=== PATIENT | male | born 1945 ===

== ENCOUNTER 2020-05-20 07:01 | Observation (INO) ==
[2020-05-20 08:03] LABS: ABS Basophils 0.1 10^3/ul (0-0.2); ABS Eosinophils 0.1 10^3/ul (0-0.6); ABS Lymphocytes 0.7 10^3/ul (1.0-4.8); ABS Monocytes 0.3 10^3/ul (0-0.8); ABS Neutrophils 1.7 10^3/ul (1.5-7.7); Eosinophil % 3.7 %; Hematocrit 39 % (42-52); Hemoglobin 12.8 g/dL (14.0-18.0); Lymphocyte % 23.7 %; Mean Corpuscular HGB Conc 33 g/dL (31-36); Mean Corpuscular Hemoglobin 30 pg (27-31); Mean Corpuscular Volume 91 fL (80-94); Mean Platelet Volume 7.2 fL (7.4-10.4); Platelet Count 202 10^3/uL (150-450); Red Blood Count 4.25 10^6 /uL (4.18-5.48); Red Cell Distribution Width 14 % (10-15)
[2020-05-20 08:20] LABS: ALT 23 U/L (7-52); AST 34 U/L (13-39); Albumin 3.9 g/dL (3.2-5.2); Albumin/Globulin Ratio 1.5 (1-3); Alkaline Phosphatase 39 U/L (34-104); Anion Gap 5 mmol/L (2-11); BUN/Creatinine Ratio 17.2 (8-20); Blood Urea Nitrogen 17 mg/dL (6-24); CO2 Carbon Dioxide 29 mmol/L (22-32); Calcium 9.5 mg/dL (8.6-10.3); Chloride 107 mmol/L (101-111); EGFR African American 89.7 (>60); EGFR Non-African American 74.1 (>60); Globulin 2.6 g/dL (2-4); Glucose 89 mg/dL (70-100); Potassium 4.1 mmol/L (3.5-5.0); Sodium 141 mmol/L (135-145); Total Protein 6.5 g/dL (6.4-8.9)
[2020-05-20 08:46] LABS: INR 1.06 (0.82-1.09)
[2020-05-20] MEDS ORDERED: Iohexol 350 (CONTRAST) 500 ML MDV IV ONE (08:47)
[2020-05-20 10:54] LABS: % Iron Saturation 27 % (15-55); Iron 120 ug/dL (50-212); Total Iron Binding Capacity 438 mcg/dL (250-450); Transferrin 313 mg/dL (203-362); Unsaturated Iron Binding < 423 ug/dL
[2020-05-20 11:06] LABS: HDL Cholesterol 92.1 mg/dL
[2020-05-20 11:19] LABS: Folate > 20.00 ng/mL (>3.99)
[2020-05-20 11:19] LABS: TSH Ultra Thyroid Stim Horm 2.59 mcIU/mL (0.34-5.60)
[2020-05-20 11:21] LABS: Free T4 0.92 ng/dL (0.61-1.12)
[2020-05-20] MEDS: Enoxaparin 40 MG/0.4 ML SYR SUBCUT SCH (15:03)
[2020-05-21 05:25] LABS: ABS Eosinophils 0.2 10^3/ul (0-0.6); ABS Monocytes 0.5 10^3/ul (0-0.8); ABS Neutrophils 1.7 10^3/ul (1.5-7.7); Eosinophil % 5.4 %; Hematocrit 37 % (42-52); Hemoglobin 12.8 g/dL (14.0-18.0); Lymphocyte % 28.7 %; Mean Corpuscular HGB Conc 34 g/dL (31-36); Mean Corpuscular Hemoglobin 31 pg (27-31); Mean Corpuscular Volume 90 fL (80-94); Mean Platelet Volume 7.3 fL (7.4-10.4); Platelet Count 188 10^3/uL (150-450); Red Blood Count 4.15 10^6 /uL (4.18-5.48); Red Cell Distribution Width 14 % (10-15); White Blood Count 3.4 10^3/uL (3.5-10.8)
[2020-05-21] MEDS: Enoxaparin 40 MG/0.4 ML SYR SUBCUT SCH ×2 (08:43→09:32)
[2020-05-21] MEDS ORDERED: Aspirin EC 81 mg TAB.EC (enteric coated) PO SCH (09:00)
[2020-05-21 11:43] VITALS: BP 99/72
== END 2020-05-21 12:12 | disposition home or self-care (01) ==
LOC: ED 07:01 → MEDTELE 07:01
PROVIDERS: ADMIT Hospitalist; ATTEND Internal Medicine

== ENCOUNTER 2021-03-31 06:56 | Observation (INO) ==
[~2021-03-31 06:56] MED LIST: Buffered Lidocaine 1% SYRIN 1 ml INTRADERM ONE; Lactated Ringers 1000 ml BAG 1,000 ML IV SCH
[2021-03-31] MEDS ORDERED: ceFAZolin 2 GM PREMIX 2 GM/50 ML BAG ONE (07:32)
[2021-03-31] MEDS ORDERED: Ropivacaine 5 MG/ML 20 ML VIAL 0.5% (100 MG) ONE (08:17)
[2021-03-31] MEDS ORDERED: Rocuronium 50 mg VIAL 10 mg/ml 5 ml VIAL (50 mg) ONE (08:34)
[2021-03-31] MEDS ORDERED: fentaNYL 250 mcg/5 ml 50 MCG/ML 5 ml VIAL (250 MCG) ONE (08:34)
[2021-03-31] MEDS ORDERED: Propofol 10 MG/ML 20 ML BTL ONE (08:37)
[2021-03-31] MEDS ORDERED: Lidocaine 2% PF 5 ML VIAL ONE (08:37)
[2021-03-31] MEDS ORDERED: HYDROmorphone 1 MG/1 ML SYRINGE ONE ×3 (08:49→11:47)
[2021-03-31] MEDS ORDERED: Acetaminophen IV 1 GM/100ML 100 ML IV ONE (08:58)
[2021-03-31] MEDS ORDERED: DiMENhydriNATE IV 50 mg/ml 1 ml VIAL IV PUSH PRN ×2 (09:10→09:11)
[2021-03-31] MEDS ORDERED: diPHENhydraMINE IV 50 MG/ML 1 ml VIAL (BENADRYL) IV PRN ×3 (09:10→09:40)
[2021-03-31] MEDS ORDERED: Naloxone 0.4 mg VIAL 0.4 mg/ml 1 ml VIAL IV PRN ×2 (09:10→09:11)
[2021-03-31] MEDS ORDERED: fentaNYL 100 mcg/2 ml 50 MCG/ML VIAL IV PRN (09:10)
[2021-03-31] MEDS ORDERED: Morphine 2 MG/ML SYRINGE IV PRN (09:40)
[2021-03-31] MEDS ORDERED: Lactulose 30 ml UDC PO PRN (09:40)
[2021-03-31] MEDS ORDERED: Magnesium Hydroxide LIQ 30 ML UDC PO PRN (09:40)
[2021-03-31] MEDS ORDERED: diPHENhydraMINE 25 mg TAB PO PRN (09:40)
[2021-03-31] MEDS ORDERED: Ondansetron ODT 4 mg TAB 4 MG TAB PO PRN (09:40)
[2021-03-31] MEDS ORDERED: Ondansetron 4 mg VIAL 2 MG/ML 2 ml VIAL IV PRN (09:40)
[2021-03-31] MEDS ORDERED: Midazolam 2 mg/2 ml VIAL 1 mg/ml 2 ml VIAL (2 mg) ONE (10:26)
[2021-03-31] MEDS: HYDROmorphone 1 MG/1 ML SYRINGE IV PRN ×5 (11:48→12:08)
[2021-03-31] MEDS: Lactated Ringers 1000 ml BAG 1,000 ML IV SCH ×2 (12:32→22:50)
[2021-03-31] MEDS ORDERED: Phenylephrine 40 mcg/mL 10mL (400mcg) SYRINGE ONE ×2 (12:53→12:54)
[2021-03-31 14:28] LABS: INR 1.16 (0.86-1.15)
[2021-03-31] MEDS: ceFAZolin 1 GM ADVAN 1 GM in NS 0.9% 50 ML 50 ML IVPB SCH (16:03)
[2021-03-31] MEDS: Magnesium Hydroxide LIQ 30 ML UDC PO SCH (20:28)
[2021-04-01] MEDS: ceFAZolin 1 GM ADVAN 1 GM in NS 0.9% 50 ML 50 ML IVPB SCH ×2 (00:03→07:37)
[2021-04-01 06:08] LABS: Hematocrit 28 % (42-52); Hemoglobin 9.4 g/dL (14.0-18.0); Mean Platelet Volume 7.5 fL (7.4-10.4); Platelet Count 183 10^3/uL (150-450)
[2021-04-01 06:25] LABS: Calcium 8.6 mg/dL (8.6-10.3); eGFR CKD-EPI 86.2 (>60)
[2021-04-01 07:39] VITALS: BP 107/57
[2021-04-01] MEDS ORDERED: Vitamin THERAPEUTIC TAB PO SCH (09:00)
[2021-04-01] MEDS: Magnesium Hydroxide LIQ 30 ML UDC PO SCH (09:00)
== END 2021-04-01 11:10 | disposition home or self-care (01) ==
LOC: SSU 06:56 → OR 06:56
PROVIDERS: ADMIT Orthopaedic Surgery Adult Reconstructive Orthopaedic Surgery; ATTEND Orthopaedic Surgery Adult Reconstructive Orthopaedic Surgery